=== PATIENT | female | born 1975 | race Two or more races ===

== ENCOUNTER 2023-09-17 19:08 | Emergency (ER) | payer BC, OTHER ==
[~2023-09-17] VITALS: Ht 157.5 cm; Wt 54.4 kg
[2023-09-17 19:55] VITALS: BP 130/80; TEMP 98.4
[2023-09-17] MEDS ORDERED: ACETAMINOPHEN ES 500 MG TABLET ONE (20:28)
[2023-09-17] MEDS ORDERED: CYCLOBENZAPRINE 10 MG TABLET ONE (20:28)
[2023-09-17] MEDS: CYCLOBENZAPRINE 10 MG TABLET PO ONE (20:30)
[2023-09-17] MEDS: ACETAMINOPHEN ES 500 MG TABLET PO ONE (20:30)
[2023-09-17] MEDS ORDERED: IBUP-1955 PO (21:16)
[2023-09-17] MEDS ORDERED: CYCL5TAB PO (21:16)
[2023-09-17] MEDS ORDERED: ACET-2605 PO (21:16)
[2023-09-17 21:33] VITALS: O2SAT 98
== END 2023-09-17 21:35 | disposition home or self-care (01) ==
LOC: ER 19:10
DX: R51.9 Headache, unspecified (principal); M54.2 Cervicalgia; M54.6 Pain in thoracic spine; V43.52XA Car driver injured in collision with other type car in traffic accident, initial encounter; Y93.89 Activity, other specified; Y92.89 Other specified places as the place of occurrence of the external cause; Y99.8 Other external cause status